=== PATIENT | female | born 1955 | race Caucasian/White ===

== ENCOUNTER 2018-04-24 23:47 | Emergency (ER) | payer MEDICAID, OTHER ==
[~2018-04-24] VITALS: Ht 149.9 cm; Wt 67.6 kg
[2018-04-24 23:51] VITALS: BP 142/78
--- NOTE | 2018-04-24 23:52 | NUR ---
FADY CUMMINGS TO [place] [employer] AT BEDSIDE, MADE AWARE
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
--- NOTE | 2018-04-25 01:43 | NUR ---
ER MD DR SIMON AT BEDSIDE FOR EVAL
--- NOTE | 2018-04-25 02:06 | NUR ---
PT SENT TO CT WITH TECH VIA BED [id number]
[2018-04-25 03:15] VITALS: BP 125/60
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
== END 2018-04-25 03:15 | disposition home or self-care (01) ==
LOC: MED 23:47
DX: Z02.89 Encounter for other administrative examinations (principal); S70.12XA Contusion of left thigh, initial encounter; F10.99 Alcohol use, unspecified with unspecified alcohol-induced disorder; M54.2 Cervicalgia; I10 Essential (primary) hypertension; F17.210 Nicotine dependence, cigarettes, uncomplicated; K21.9 Gastro-esophageal reflux disease without esophagitis; Z90.49 Acquired absence of other specified parts of digestive tract; Y04.2XXA Assault by strike against or bumped into by another person, initial encounter; Y93.89 Activity, other specified; Y92.89 Other specified places as the place of occurrence of the external cause; Y99.8 Other external cause status
CPT/HCPCS: 70450; 72125; 99284